=== PATIENT | male | born 1995 | race African-American/Black ===

== ENCOUNTER 2017-04-02 19:00 | Inpatient (IN) | payer OTHER ==
--- NOTE | ~2017-04-02 | PN ---
Unit #: [id number] #: [id number] Patient: NIKKY MENDEZ [id number] [facility] [address] [place] [address] [id number] I MR#: [id number] NAME: NIKKY MENDEZ ROOM: P174 Age: 21 Sex: M Admission Date: 04/02/2017 : 1995 Attending Physician: Marycarmen Gordon M.D. Admitting Physician: Marycarmen Gordon M.D. Primary Care Physician: Yoshi Doctor Not In System [facility] PROGRESS NOTES DATE OF SERVICE: 04/04/2017 SUBJECTIVE Mr. Mendez is a 21-year-old white male who was seen today and chart was reviewed, and case was discussed with the staff. He has been anxious, withdrawn, and rather seclusive to himself. Meanwhile, he has been cooperative with treatment recommendation and has been taking the medications and tolerating them fairly well with no reported side effects. MENTAL STATUS EXAMINATION Young white male who was casually dressed with fair personal hygiene, appears to be in no acute distress or discomfort. He was alert on interaction with intact orientation. His mood was anxious with a congruent affect. He denies any suicidal or homicidal ideations. His insight and judgment remain slightly impaired. TREATMENT PLAN 1. We will continue him on his current medications and treatment protocol. We will monitor his response to medications and make further adjustments as needed. 2. We will continue to follow up. Dictated by... Pranay Dalal/johnl TD: 04/04/2017 11:43 JOB #: [id number] [facility] PROGRESS NOTES Page 1 of 1 X Marycarmen Gordon MD X PROGRESS NOTE
--- NOTE | ~2017-04-02 | PA ---
Unit #: [id number] #: [id number] Patient: NIKKY MENDEZ [id number] [facility] [address] [place] [address] [id number] I MR#: [id number] NAME: NIKKY MENDEZ ROOM: P174 Age: 21 Sex: M Admission Date: 04/02/2017 : 1995 Date of Assessment: Attending Physician: Marycarmen Gordon M.D. Admitting Physician: Marycarmen Gordon M.D. PSYCHIATRIC ASSESSMENT DATE OF SERVICE 04/03/2017. IDENTIFYING DATA Mr. Mendez is a 21-year-old single male, who is a resident of [place], [place], and was self-referred to the hospital on a voluntary basis. CHIEF COMPLAINT "I got evicted from my apartment 2 weeks ago, I had to go where I used to get ice." HISTORY OF PRESENT ILLNESS Mr. Mendez is a 21-year-old male, who was brought to the hospital accompanied by his father. Upon presentation, he stated that he got evicted from his apartment a couple of weeks ago and he has been going to where he was getting ice, "I did not really want to go in the first place, but a place I can lay down." The patient reports that he has been using methamphetamine for the past 2 weeks, "I feel ashamed of myself." The patient reports using ice every 2 to 3 days and reports using half a gram each time he uses and stated "I have not done it in the last 3 days. The effects of it keeps me up. I don't like the life I'm living, but I know it would be selfish if I kill myself." The patient reports suicidal ideation with an intent and plan and reports that he went to a alliance party 3 to 4 days ago and someone gave him a line and he heated up and stated it made him "nod off and when I asked him what is that and the person stated have you ever done heroin and stated now you have." The patient was reporting some increasing depression, anxiety, irritability, feelings of hopelessness and helplessness, and suicidal ideation and as such, a recommendation for inpatient level of care for safety and stabilization was made and the patient was transferred to us. SUBSTANCE ABUSE HISTORY The patient reports history of alcohol, cannabis, cocaine, acid, opioids, and methamphetamine abuse, and more recently, methamphetamine has been his drug of choice. PAST PSYCHIATRIC HISTORY The patient has had a history of inpatient chemical dependency and psychiatric treatment at the [facility] as well as the [facility], and review of the medical records indicate currently he is not active in any treatment program, is not seeing a psychiatrist, and is not taking any psychotropic medications. Unit #: [id number] #: [id number] Patient: NIKKY MENDEZ PAST MEDICAL HISTORY The patient's medical history is insignificant. ALLERGIES No known medication allergies. PERSONAL AND SOCIAL HISTORY A 21-year-old male, who reports that he is single, unemployed, and essentially homeless and has poor social support system. MENTAL STATUS EXAMINATION Young male, who was casually dressed with fair personal hygiene and appears to be in no acute distress or discomfort. He was awake and alert on interaction with intact orientation to time, place, and person. His mood was anxious and depressed with a congruent affect. His speech was slow and restricted in content. His thought processes were disorganized with some looseness of associations and flight of ideas and suicidal ideations. His insight and judgment remain significantly impaired. DIAGNOSTIC IMPRESSION Psychiatric: Major depressive disorder, recurrent, moderate, without psychotic features; methamphetamine dependence, moderate; and opioid abuse, moderate. Medical: None. Stressors: Moderate psychosocial stressors. TREATMENT PLAN 1. The patient has presented with a history of substance abuse and mood disorder and has been decompensating and will need inpatient hospitalization for detoxification and safety and stabilization. We will start him back on his home medications and we will adjust the medications and monitor response. 2. Supportive therapy was provided to the patient. 3. Safe, structured, and nourishing environment will be provided. ESTIMATED LENGTH OF STAY 5 to 7 days. ABILITY TO HELP SELF Limited. WILLINGNESS TO HELP SELF The patient appears to be willing to help self. STRENGTHS 1. Communicative. 2. Cooperative. PROBLEMS 1. Chronic dysphoric symptoms. 2. Chronic chemical dependency. 3. Poor social support system. DISCHARGE CRITERIA This will be contingent upon the patient's ability to show resolution of his depression and anxiety and his ability to stay safe to himself, particularly after discharge from the hospital. Unit #: [id number] #: [id number] Patient: NIKKY MENDEZ Dictated by... Pranay Dalal/nichole TD: 04/03/2017 17:48 JOB #: [id number] PSYCHIATRIC ASSESSMENT Page 1 of 1 X Marycarmen Gordon MD PSYCHIATRIC ASSESSMENT
--- NOTE | ~2017-04-02 | PN ---
Unit #: [id number] #: [id number] Patient: NIKKY MENDEZ [id number] [facility] [address] [place] [address] [id number] I MR#: [id number] NAME: NIKKY MENDEZ ROOM: P174 Age: 21 Sex: M Admission Date: 04/02/2017 : 1995 Attending Physician: Marycarmen Gordon M.D. Admitting Physician: Marycarmen Gordon M.D. Primary Care Physician: Yoshi Doctor Not In System [facility] PROGRESS NOTES DATE OF SERVICE: 04/06/2017 SUBJECTIVE Mr. Mendez is a 21-year-old male, who was seen today and chart was reviewed and case was discussed with the staff. He has been anxious, withdrawn, and has been showing insight into his situation and poor motivation towards treatment as has been pushing to leave and not showing much motivation towards treatment has been taking the medications and tolerating them fairly well with no reported side effects. MENTAL STATUS EXAMINATION Young male who was casually dressed with fair personal hygiene, appears to be in no acute distress or discomfort. He was awake and alert with intact orientation. His mood was anxious with a congruent affect. He denies any suicidal or homicidal ideations. His insight and judgment remain slightly impaired. TREATMENT PLAN We will continue on his current medications and treatment protocol. We will monitor his response to medications and make further adjustments as needed and we will encourage him to show better compliance to treatment recommendations. Dictated by... Pranay Dalal/nichole TD: 04/07/2017 01:44 JOB #: [id number] Unit #: [id number] #: [id number] Patient: NIKKY MENDEZ [facility] PROGRESS NOTES Page 1 of 1 X Marycarmen Gordon MD PROGRESS NOTE
--- NOTE | ~2017-04-02 | PN ---
Unit #: [id number] #: [id number] Patient: NIKKY MENDEZ [id number] [facility] [address] [place] [address] [id number] I MR#: [id number] NAME: NIKKY MENDEZ ROOM: P174 Age: 21 Sex: M Admission Date: 04/02/2017 : 1995 Attending Physician: Marycarmen Gordon M.D. Admitting Physician: Marycarmen Gordon M.D. Primary Care Physician: Yoshi Doctor Not In System [facility] PROGRESS NOTES DATE OF SERVICE: 04/05/2017 SUBJECTIVE Mr. Mendez is a 21-year-old male who was seen today and chart was reviewed, and case was discussed with the staff. He remains anxious, withdrawn, rather seclusive to himself and has nausea and agitation, and feeling better and denies any current withdrawal symptoms. He has been taking the medications and tolerating them. MENTAL STATUS EXAMINATION Young male who was casually dressed with fair personal hygiene, appears to be in no acute distress or discomfort. He was awake and alert with impaired attention and concentration. His mood was anxious with a congruent affect. He denies any suicidal or homicidal ideations. His insight and judgment remain slightly impaired. TREATMENT PLAN 1. We will continue him on his current medications and treatment protocol. We will monitor his response to medications and make further adjustments as needed. 2. We will continue to follow up. Dictated by... Pranay Dalal/nichole TD: 04/05/2017 08:27 JOB #: [id number] [facility] PROGRESS NOTES Page 1 of 1 X Marycarmen Gordon MD PROGRESS NOTE
--- NOTE | ~2017-04-02 | HP ---
Unit #: [id number] #: [id number] Patient: NIKKY GALEANO [id number] [place] [address] [id number] I MR#: [id number] NAME: NIKKY GALEANO ROOM: P174 Age: 21 Sex: M Admission Date: 04/02/2017 : 1995 Attending Physician: Marycarmen Gordon M.D. Admitting Physician: Marycarmen Gordon M.D. Primary Care Physician: Generic Doctor Not In System HISTORY AND PHYSICAL HISTORY OF PRESENT ILLNESS The patient is a 21-year-old male admitted to [facility] on 04/02/2017 for methamphetamine abuse and suicidal ideation. PAST MEDICAL HISTORY Patient denies. PAST SURGICAL HISTORY The patient denies. SOCIAL HISTORY He is unemployed and homeless. He smokes one pack of cigarettes daily, uses methamphetamine on a daily basis and has a history of polysubstance use. FAMILY MEDICAL HISTORY Noncontributory. ALLERGIES No known drug allergies. CURRENT MEDICATIONS The patient is not on any home medication. REVIEW OF SYSTEMS CONSTITUTIONAL: No fever or chills. HEENT: Denies any sore throat, ear pain or runny nose. CARDIOVASCULAR: Denies chest pain, irregular heart rhythm or palpitations. CHEST: Denies shortness of breath or cough. No hemoptysis. GASTROINTESTINAL: Denies nausea, vomiting, diarrhea or chronic constipation. ENDOCRINE: Denies history of increased thirst or urination. No recent significant weight loss or gain. GENITOURINARY: Denies dysuria, frequency, or hematuria. SKIN: Denies any rashes. HEMATOLOGIC: Denies history of increased bleeding or bruising. MUSCULOSKELETAL: Denies any hot, swollen joints. No generalized muscle pain. NEUROLOGIC: Denies problems with vision or speech. No frequent, severe headaches. No numbness, tingling or weakness in any extremities. Denies loss of bladder or bowel control. PHYSICAL EXAM Unit #: [id number] #: [id number] Patient: NIKKY GALEANO GENERAL: He is awake, alert and oriented in no acute distress. VITAL SIGNS: Temperature 98.3, heart rate 71, respiration 16, blood pressure 115/66. HEIGHT: 6'1". WEIGHT: 185 pounds. SKIN: Warm and dry without rash or lesion. HEENT: Normocephalic. TMs not viewed. Oral and nasal passages clear. Conjunctivae clear. PERRLA. EOMs intact. NECK: Supple without lymphadenopathy or thyromegaly. HEART: Regular rate and rhythm without murmur. LUNGS: Clear. ABDOMEN: Soft, nontender. : Not done. EXTREMITIES: No evidence of cyanosis, clubbing or edema. Moves all without focal deficit. NEUROLOGICAL: Grossly within normal limits. Cranial Nerves: II: Visual mcdermott are intact. III, IV AND : Extraocular movements are intact. Pupils are equal, round and reactive to light. V: Facial sensation is grossly normal. VII: Facial movements and expression are normal. VIII: Auditory acuity grossly intact. IX, X: Uvula is midline. Phonation is normal. XI: Patient shrugs shoulders and turns head normally. XII: Tongue protrudes in the midline. Sensory and Motor Function: Sensory and motor sensation is grossly normal. Motor: moves all extremities well. IMPRESSION 1. Psychiatric admission. 2. Polysubstance abuse. 3. Nicotine dependence. RECOMMENDATIONS Psychiatric per psychiatrist. MEDICAL: No contraindication to participate in facility activities. MEDICAL PROGNOSIS Good. MEDICAL CONDITION Stable. Dictated by... Karan Nair/lorrie TD: 04/05/2017 04:01 JOB #: [id number] Unit #: [id number] #: [id number] Patient: NIKKY GALEANO HISTORY AND PHYSICAL Page 1 of 1 X RITA MEZA APRN HISTORY AND PHYSICAL
--- NOTE | ~2017-04-02 | DS ---
Unit #: [id number] #: [id number] Patient: NIKK[facility]ENDEZ [id number] [facility] [place] [address] [id number] I MR#: [id number] NAME: NIKKY MENDEZ ROOM: P174 Age: 21 Sex: M Admission Date: 04/02/2017 : 1995 Discharge Date: 04/07/2017 Attending Physician: Marycarmen Grodon M.D. Primary Care Physician: Generic Doctor Not In System DISCHARGE SUMMARY IDENTIFYING DATA Mr. Mendez is a 21-year-old single male, who is a resident of [place], [place], and was self-referred to the hospital on a voluntary basis. DISCHARGE DIAGNOSES Psychiatric: Major depressive disorder, recurrent, moderate, without psychotic features; methamphetamine dependence, moderate; opioid abuse, moderate. Medical: None. Stressors: Moderate psychosocial stressors. HISTORY OF PRESENT ILLNESS Please see initial psychiatric evaluation for details. PAST PSYCHIATRIC HISTORY Please see initial psychiatric evaluation for details. PAST MEDICAL HISTORY Please see initial psychiatric evaluation for details. HOSPITAL COURSE The patient was admitted to the adult chemical dependency unit at [facility] and was oriented to the hospital environment. Routine p.r.n. medications were initiated, and he was started on Wellbutrin XL; however, the patient was seen to be anxious, withdrawn, and rather seclusive, and showing very poor insight his into situation and no motivation towards treatment and actively trying to mask and minimize his symptoms and was denying any suicidal ideations, intent, or plan and was wanting to go home and as such, it was decided that he will be discharged home and will continue treatment on an outpatient basis. DISCHARGE MEDICATIONS Wellbutrin XL 150 mg in the morning for depression. DISCHARGE CONDITION Stable. PROGNOSIS Fair. Dictated by... Marycarmen Gordon M.D. Unit #: [id number] #: [id number] Patient: NIKKY MENDEZ IAA/modl TD: 04/08/2017 01:01 JOB #: [id number] DISCHARGE SUMMARY Page 1 of 1 X Marycarmen Gordon MD X DISCHARGE SUMMARY
[2017-04-03 11:59] LABS: URINE APPEARANCE TURBID; URINE BLOOD NEG (NEG); URINE COLOR DK YELLOW; URINE GLUCOSE NEG (NEG); URINE KETONE NEG (NEG); URINE LEUKOCYTE ESTERASE 1+ (NEG); URINE NITRATE NEG (NEG); URINE PH 5.5 (5-8); URINE PROTEIN NEG (NEG); URINE SPECIFIC GRAVITY 1.034 (1.003-1.035); URINE UROBILINOGEN 0.2 MG/DL (NEG)
[2017-04-03 12:01] LABS: URBCS1 AUWI 0-2 /[HPF] (0-2); URINE BACTERIA AUWI NEG (NEGATIVE); URINE SQUAMOUS EPITHELIAL CELL NONE SEEN /[HPF]
[2017-04-03 12:09] LABS: URINE BILIRUBIN NEG (NEG)
[2017-04-03 12:10] LABS: AMPHETAMINE POS (NEG); BARBITURATES NEG (NEG); BENZODIAZEPINES NEG (NEG); COCAINE NEG (NEG); MARIJUANA POS (NEG); OPIATES NEG (NEG); TRICYCLIC ANTIDEPRESSANTS NEG (NEG); U METHADONE NEG (NEG)
[2017-04-04 11:34] LABS: BASOPHIL% 0.6 % (0-2.5); DIFF IND NO; EOSINOPHIL# 0.2 X10e3 (0-0.7); EOSINOPHIL% 4.3 % (0.0-7.0); HEMATOCRIT 45.4 % (38.0-50.0); HEMOGLOBIN 14.9 gm/dL (13.0-16.0); LYMPHOCYTE# 1.9 X10e3 (1.0-3.5); LYMPHOCYTE% 36.2 % (17.0-45.0); MEAN CORPUSCULAR HEMOGLOBIN 29.8 PG (28-34); MEAN CORPUSCULAR HGB CONC 32.7 g/dL (30-36); MEAN PLATELET VOLUME 8.8 FL (6.5-11.5); MONOCYTE# 0.5 X10e3 (0-1.0); MONOCYTE% 8.9 % (3.0-12.0); NEUTROPHIL# 2.6 X10e3 (1.5-7.1); PLATELET COUNT 243 X10e3 (140-420); RED BLOOD COUNT 4.99 X10e (3.90-5.60); RED CELL DISTRIBUTION WIDTH 12.9 % (11.0-15.5); WHITE BLOOD COUNT 5.3 X10e3 (4.0-10.5)
[2017-04-04 11:41] LABS: ALBUMIN SERUM 3.6 g/dL (3.5-5.0); BILIRUBIN,TOTAL 0.7 mg/dL (0.2-2.0); CALCIUM SERUM 9.2 mg/dL (8.4-10.2)
== END 2017-04-07 10:14 | DRG 885 ==
LOC: P1E 22:04
PROVIDERS: Psychiatry & Neurology Psychiatry
PROC: HZ2ZZZZ Detoxification Services for Substance Abuse Treatment (ICD-10-PCS; principal; 2017-04-02)
DX: F33.1 Major depressive disorder, recurrent, moderate (principal); F11.10 Opioid abuse, uncomplicated; F19.20 Other psychoactive substance dependence, uncomplicated
CPT/HCPCS: 80053; 80307; 81003; 85025